=== PATIENT | female | born 1955 | race Caucasian/White ===

== ENCOUNTER 2017-12-22 19:52 | Observation (INO) | payer MEDICAID, SELFPAY ==
[2017-12-22 19:54] VITALS: BP 112/70; PULSE 86; RESP 16; TEMP 36.9; O2SAT 97; BMI 30.7
--- NOTE | 2017-12-22 21:41 | RAD_ITS ---
STUDY: X-RAY CHEST REASON FOR EXAM: Female, 62 years old. UPPER BACK PAIN, NAUSEA TECHNIQUE: Single AP portable view of the chest. COMPARISON: None. FINDINGS: The lungs are clear and expanded. There is no demonstrated pleural abnormality. Normal size heart. Normal mediastinum and alex. Normal visualized pulmonary arteries. Normal visualized aortic arch and descending thoracic aorta. The thoracic spine is not well evaluated in this projection. It appears there are mild degenerative changes. Normal visualized ribs, clavicles, and shoulders. There is no demonstrated abnormality of the visualized soft tissue structures of the upper abdomen. RAD/Chest 1 View (Portable) IMPRESSION: Normal x-ray examination of the chest. Electronically Signed: Grisel Grossman MD at 22:08 EST Tel , Service support ,
--- NOTE | 2017-12-22 21:41 | EKG12_ITS ---
Test Reason : BACK Blood Pressure : / mmHG Vent. Rate : 073 BPM Atrial Rate : 073 BPM P-R Int : 124 ms QRS Dur : 076 ms QT Int : 390 ms P-R-T Axes : 050 002 032 degrees QTc Int : 429 ms Normal sinus rhythm Normal ECG Confirmed by MARINE ABDULLAHI, FRANTZ ([id number]), online editor AVTAR PASCAL ([id number] on 12/24/2017 1:23:57 PM Referred By: ROOSEVELT VENTURA Confirmed By:FRANTZ HAWTHORNE MD
[2017-12-22] MEDS: 0.9% Normal Saline 1,000 ML 150 ML IV (22:03)
[2017-12-22] MEDS: Aspirin 81 MG TAB.CHEW 324 MG PO (22:04)
[2017-12-22 22:07] VITALS: BP 122/82; PULSE 84; RESP 18; O2SAT 100
[2017-12-22 22:25] LABS: Absolute Lymphocyte Count 1.34 X10^3/ul (0.83-4.51); Absolute Neutrophil Count 0.9 X10^3/uL (2.0-7.7); Basophil# 0.02 X10^3/uL; Basophil% 0.8 % (0-1); Eosinophil# 0.02 X10^3/uL; Eosinophils% 0.8 % (0-5); Hematocrit 41.9 % (37-47); Hemoglobin 14.1 g/dl (12.0-15.0); Lymphocyte # 1.34 X10^3/ul (4.0); Lymphocyte % 51.7 % (19-41); Mean Corp Hgb Conc 33.7 g/gl (32-36); Mean Corpuscular Hgb 29.3 pg (27.0-32.0); Mean Corpuscular Volume 87.1 fL (81-99); Mean Platelet Vol. 11.2 fl (6.2-12.0); Monocyte# 0.32 X10^3/uL; Monocyte% 12.4 % (0-10); Neutrophil # 0.88 X10^3/uL (2.7-7.7); Neutrophil % 33.9 % (47-70); Platelet Count 175 K/mm3 (150-450); RBC Distribution Width CV 13.8 % (11.6-14.6); RBC Distribution Width SD 43.6 fl (35.1-43.9); Red Blood Count 4.81 M/mm3 (4.2-5.4); White Blood Count 2.6 K/mm3 (4.4-11.0)
[2017-12-22 22:26] LABS: Differential Indicated SCAN CRITERIA MET; POSITIVE COUNT NO; POSITIVE DIFFERENTIAL YES; POSITIVE MORPHOLOGY NO
[2017-12-22 22:37] LABS: AST(SGOT) 139 U/L (15-37); Alanine Aminotransfer ALT/SGPT 224 U/L (13-56); Albumin, Serum 3.6 g/dL (3.2-5.0); Alkaline Phosphatase 156 U/L (45-117); Bilirubin, Direct 0.14 mg/dL (0.00-0.30); D-Dimer Quantitative (DVT/PE) 0.54 FEU/ug/m (0.27-0.49); Globulin 3.5 g/dL (2.2-4.2); Protein, Total 7.1 g/dL (6.4-8.2)
--- NOTE | 2017-12-22 22:37 | NURSING ---
elevated ddimer 0.54
[2017-12-22 22:43] LABS: Anion Gap 10 (5-15); BUN 12 mg/dL (7-18); BUN/Creat Ratio 14.4 RATIO (10-20); Calcium,Total 8.6 mg/dL (8.5-10.1); Chloride 102 mmol/L (98-107); Creatinine, Serum 0.83 mg/dL (0.55-1.02); EST Glomerular Filtration Rate 73 mL/min (>60); Est Glom Filt Rate - Afr Amer 88 mL/min (>60); Glucose 196 mg/dL (74-106); Lipase 65 U/L (73-393); Potassium 3.9 mmol/L (3.5-5.1); Sodium Level 139 mmol/L (136-145)
[2017-12-22 22:52] LABS: Differential Comment SCANNED; Platelet Estimate ADEQUATE (ADEQ); Reactive Lymphocyte 1+; Smudge Cells RARE
--- NOTE | 2017-12-22 22:57 | ED.DCSUM_ITS ---
- ER Visit Summary Date of Service: 12/22/17 Chief Complaint: [Back and chest pain] History of Present Illness: The patient is a 62 F [presents to the emergency department chief complaint of discomfort in her upper back ?2 days. Patient states she will have intermittent aching pressure and tightness that radiates down both arms. Patient has had nausea and diaphoresis with this. At times he feels like it takes her breath away. Patient also has had some discomfort in the epigastric region that she thought maybe was just indigestion. She denies any vomiting. He denies recent travel. She did have a surgery on her left rotator cuff last September.] Physical Examination: [HEENT-PERRLA, EOMI. Cranial nerves II through XII grossly intact. TMs clear. Mucous membranes moist. No adenopathy. Cardiovascular-regular rate and rhythm without murmur or ectopy Lungs-clear to auscultation, chest wall stable without crepitus or subcu emphysema Abdomen-normoactive bowel sounds, soft, nontender, no rebound or rigidity, no peritoneal signs. Back exam-patient has no tenderness over the thoracic or lumbar spine or paraspinal musculature. Patient has no tenderness over the trapezii and I cannot reproduce her pain. Extremities-intact ?4, normal range of motion, normal pulses, atraumatic] Test Results: [EKG obtained on arrival shows sinus rhythm with a ventricular rate of 73 bpm. CBC with differential showed a white blood cell count of 2.6, hemoglobin 14, hematocrit 42, platelets 175. Chemistries unremarkable. LFTs were elevated with an ALT of 224, AST 139, alk phos 156, lipase was 65, troponin was less than 0.02. D-dimer was 0.54. When her d-dimer is adjusted for age it is normal.] Emergency Department Course and Treatment: [Patient received aspirin while in the emergency department.] Treatment Plan: [Patient will be admitted for further workup and evaluation] Disposition: [Admit] Impression: [Chest pain-rule out acute coronary syndrome Back pain] This note was generated with [employer] dictation software. It may contain incorrect words, spelling, and punctuation that were not noted in review of the chart prior to signing ED Disposition - Plan for ED Patient: Chief Complaint: Back Referrals: Jeanne Webster DO [Primary Care Provider] -
[2017-12-22 23:00] VITALS: BP 124/79; PULSE 73; RESP 16; O2SAT 97
[2017-12-23 00:05] VITALS: BP 132/78; PULSE 72; PULSE 74; RESP 20; TEMP 37.2; O2SAT 98
[2017-12-23 00:07] VITALS: BMI 30.4
[2017-12-23 00:13] VITALS: BMI 30.4
[2017-12-23 00:20] LABS: Magnesium 2.1 mg/dL (1.6-2.6); Thyroid Stim Hormone (TSH) 3.05 uIU/mL (0.358-3.74)
[2017-12-23] MEDS: 0.9% Normal Saline 1,000 ML 75 ML IV (00:59)
[2017-12-23 01:16] LABS: Bedside Glucose 164 mg/dL (70-110)
[2017-12-23 02:43] LABS: Hemoglobin 13.5 g/dl (12.0-15.0); Mean Corp Hgb Conc 33.8 g/gl (32-36); Mean Corpuscular Hgb 29.5 pg (27.0-32.0); Mean Corpuscular Volume 87.3 fL (81-99); Mean Platelet Vol. 10.9 fl (6.2-12.0); Platelet Count 167 K/mm3 (150-450); RBC Distribution Width CV 13.7 % (11.6-14.6); RBC Distribution Width SD 43.2 fl (35.1-43.9); Red Blood Count 4.58 M/mm3 (4.2-5.4); Scan Indicated on CBC? Y/N NO; White Blood Count 2.9 K/mm3 (4.4-11.0)
[2017-12-23 03:00] LABS: ALB/GLOB Ratio 1.1 RATIO (0.9-2.4); AST(SGOT) 109 U/L (15-37); Alanine Aminotransfer ALT/SGPT 191 U/L (13-56); Albumin, Serum 3.4 g/dL (3.2-5.0); Alkaline Phosphatase 144 U/L (45-117); Anion Gap 10 (5-15); BUN 11 mg/dL (7-18); BUN/Creat Ratio 15.5 RATIO (10-20); Chloride 107 mmol/L (98-107); Creatinine, Serum 0.71 mg/dL (0.55-1.02); EST Glomerular Filtration Rate 88 mL/min (>60); Est Glom Filt Rate - Afr Amer 106 mL/min (>60); Estimated Creatinine Clearance 74.94 ml/min; Globulin 3.1 g/dL (2.2-4.2); Glucose 158 mg/dL (74-106); Potassium 3.6 mmol/L (3.5-5.1); Protein, Total 6.5 g/dL (6.4-8.2); Sodium Level 141 mmol/L (136-145)
[2017-12-23 03:04] VITALS: PULSE 72
--- NOTE | 2017-12-23 03:24 | PCM.HP.STD ---
Problem List (1) Chest pain Status: Acute Qualifiers: Chest pain type: unspecified Qualified Code(s): R07.9 - Chest pain, unspecified (2) DM type 2 (diabetes mellitus, type 2) Status: Chronic Qualifiers: Diabetes mellitus complication status: without complication Diabetes mellitus jail insulin use: without jail use Qualified Code(s): E11.9 - Type 2 diabetes mellitus without complications (3) GERD (gastroesophageal reflux disease) Status: Chronic Qualifiers: Esophagitis presence: esophagitis presence not specified Qualified Code(s): K21.9 - Gastro-esophageal reflux disease without esophagitis History of Present Illness Date of Admission: 12/23/17 Chief Complaint: Chest pain - 2 days The patient is a 62 year old F with PMHx of Type 2DM, GERD, chronic back pain who comes in with complains of chest pain. Patient says that she has had pain in her chest and upper back ongoing for 2 days. This is described as intermittent, aching, with tightness radiating down both arms associated with nausea and vomiting. This comes on intermittently. It is also associated with some discomfort in the epigastric region. Denies any fever or chills or palpitations. Her last stress test was about 5 years ago. She is currently on amoxicillin for recent sinus infection. Vitals in the ED showed temperature of 90 8.5F, heart rate of 86, blood pressure 1 2/70, respiratory rate of 16, oxygen saturation 97% on room air. A CBC showed WBC count of 2.6, Hb 14.1, platelets 175. D-dimer was elevated at 0.54 Past Medical History Past Medical History (Chronic Problems): Chronic Problems DM type 2 (diabetes mellitus, type 2) (Chronic) GERD (gastroesophageal reflux disease) (Chronic) Allergies aspirin [ASA] Adverse Reaction (Verified 12/22/17 19:54) Upset Stomach Home Medications: Ambulatory Orders Medication Instructions Recorded Lansoprazole [Prevacid] 15 mg PO DAILY 07/01/15 Glimepiride [Amaryl] 2 mg PO BID 12/22/17 Amoxicillin [Amoxicillin] 875 mg PO BID 12/23/17 Surgical History: appendectomy, cholecystectomy, hysterectomy, - - left shoulder surgery, foot surgery, breast biopsy Psychiatric History: No pertinent psych hx 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 Lives: Spouse/ Significant Other Smoking Status: Former smoker Tobacco Use: Non-smoker Alcohol: Occasional Drugs: None - *Family History Maternal History Items: No pertinent history Paternal History Items: Diabetes, Heart Disease Review of Systems Constitutional: Denies: Chills, Fever, Night Sweats, Weight Change Eyes: Denies: Blurred vision, Cataracts, Conjunctivae Inflammation, Pain, Redness, Vision Change HEENT: Denies: Difficulty Hearing, Head Aches, Hearing Changes, Nasal bleeding, Sinus Congestion, Sinus Drainage, Sore Throat Cardiovascular: Denies: Chest Pain, Claudication, Orthopnea, Palpitations, Paroxysmal Noc. Dyspnea Respiratory: Denies: Cough, Shortness of Breath, Shortness of breath at rest, Shortness of breath upon exertion, Sputum production Gastrointestinal: Denies: Abdominal Pain, Constipation, Hematemesis, Nausea, Vomiting Genitourinary: Denies: Dysuria, Frequency, Incontinence Musculoskeletal: Denies: Joint Pain, Joint stiffness, Joint swelling, Joint Tenderness Skin: Denies: Rash, Wounds Neurological: Denies: Numbness, Tingling, Focal weakness Psychiatric: Denies: Anxiety, Depression, Homicidal Ideations, Suicidal Ideations Hematologic/ Lymphatic: Denies: Easy Bruising, Easy Bleeding VTE Information - Inpt Only VTE Present on Admission: No VTE Pharm Prophylaxis ordered?: Yes Patient Problems: Active and Suspected Problems Chest pain (Acute) - Physical Exam General: Alert, Oriented x3, Cooperative, No apparent distress HEENT: Atraumatic, PERRLA, EOMI, Normocephalic Oral: Moist Mucosa Neck: Supple Lungs: Clear to auscultation, Normal air movement Cardiovascular: Regular rate, Regular Rhythm, Normal S1, Normal S2, No murmurs Abdomen: Bowel Sounds Present, Soft, Non Tender, Non-Distended, No Hepato-splenomegaly Extremities: No edema Skin: No rashes Musculoskeletal: No Tenderness to Palpation of Joints or Extremities Lymphatic: No Cervical, Supraclavicular, or Inguinal Adenopathy Neurological: Cranial nerves II-XII grossly intact Psych/Mental Status: Normal Affect, Appropriate Vital Signs Temp Pulse Resp BP Pulse Ox 98.9 F 72 20 H 132/78 H 98 12/23/17 00:05 12/23/17 00:05 12/23/17 00:05 12/23/17 00:05 12/23/17 00:05 Oxygen Delivery Method Room Air Weight: 85.5 kg Body Mass Index (BMI) 30.4 Laboratory Tests Past 24 Hrs 12/23/17 12/23/17 12/23/17 02:15 02:15 02:15 WBC 2.9 L RBC 4.58 Hgb 13.5 Hct 40.0 MCV 87.3 MCH 29.5 MCHC 33.8 RDW 13.7 RDW Differential 43.2 Plt Count 167 MPV 10.9 Sodium 141 Potassium 3.6 Chloride 107 Carbon Dioxide 24.0 Anion Gap 10 BUN 11 Creatinine 0.71 Estim Creat Clear Calc 74.94 Est GFR (MDRD) Af Amer 106 Est GFR (MDRD) Non-Af 88 BUN/Creatinine Ratio 15.5 Glucose 158 H Calcium 8.0 L Total Bilirubin 0.70 AST 109 H ALT 191 H Alkaline Phosphatase 144 H Troponin I < 0.02 < 0.02 Total Protein 6.5 Albumin 3.4 Globulin 3.1 Albumin/Globulin Ratio 1.1 POC Glucose 12/23/17 01:05 POC Glucose 164 H Assessment/Plan Active and Suspected Problems Chest pain (Acute) 62 year old F with PMHx of Type 2DM, GERD, who comes in with complains of chest pain and upper back ongoing for 2 days. 1. Chest pain, atypical, patient with risk factors, last stress test was 5 years ago and was normal Plan: Admit to PCU, cycle troponins, stress test in a.m., monitor on telemetry. 2. Elevated d-dimer, 0.54 below the age-adjusted threshold will 0.64 for patient, low threshold for PE, will not pursue work-up. 3. Recent sinus infection, on amoxicillin(day 3) 4. Type II DM, on Amaryl, will add Accu-Cheks with insulin sliding scale 5. GERD, on PPI 6. DVT prophylaxis with Lovenox subcu Code Visit OBSV E&M: [id number] Initial observation care L3
--- NOTE | 2017-12-23 03:37 | HP.PCM_ITS ---
Problem List (1) Chest pain Status: Acute Qualifiers: Chest pain type: unspecified Qualified Code(s): R07.9 - Chest pain, unspecified (2) DM type 2 (diabetes mellitus, type 2) Status: Chronic Qualifiers: Diabetes mellitus complication status: without complication Diabetes mellitus mcfp insulin use: without mcfp use Qualified Code(s): E11.9 - Type 2 diabetes mellitus without complications (3) GERD (gastroesophageal reflux disease) Status: Chronic Qualifiers: Esophagitis presence: esophagitis presence not specified Qualified Code(s) : K21.9 - Gastro-esophageal reflux disease without esophagitis History of Present Illness Date of Admission: 12/23/17 Chief Complaint: Chest pain - 2 days The patient is a 62 year old F with PMHx of Type 2DM, GERD, chronic back pain who comes in with complains of chest pain. Patient says that she has had pain in her chest and upper back ongoing for 2 days. This is described as intermittent, aching, with tightness radiating down both arms associated with nausea and vomiting. This comes on intermittently. It is also associated with some discomfort in the epigastric region. Denies any fever or chills or palpitations. Her last stress test was about 5 years ago. She is currently on amoxicillin for recent sinus infection. Vitals in the ED showed temperature of 90 8.5F, heart rate of 86, blood pressure 1 2/70, respiratory rate of 16, oxygen saturation 97% on room air. A CBC showed WBC count of 2.6, Hb 14.1, platelets 175. D-dimer was elevated at 0.54 Past Medical History Past Medical History (Chronic Problems): Chronic Problems DM type 2 (diabetes mellitus, type 2) (Chronic) GERD (gastroesophageal reflux disease) (Chronic) Allergies aspirin [ASA] Adverse Reaction (Verified 12/22/17 19:54) Upset Stomach Home Medications: Ambulatory Orders Medication Instructions Recorded Lansoprazole [Prevacid] 15 mg PO DAILY 07/01/15 Glimepiride [Amaryl] 2 mg PO BID 12/22/17 Amoxicillin [Amoxicillin] 875 mg PO BID 12/23/17 Surgical History: appendectomy, cholecystectomy, hysterectomy, - - left shoulder surgery, foot surgery, breast biopsy Psychiatric History: 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 Lives: Spouse/ Significant Other Smoking Status: Former smoker Tobacco Use: Non-smoker Alcohol: Occasional Drugs: None - *Family History Maternal History Items: No pertinent history Paternal History Items: Diabetes, Heart Disease Review of Systems Constitutional: Denies: Chills, Fever, Night Sweats, Weight Change Eyes: Denies: Blurred vision, Cataracts, Conjunctivae Inflammation, Pain, Redness, Vision Change HEENT: Denies: Difficulty Hearing, Head Aches, Hearing Changes, Nasal bleeding, Sinus Congestion, Sinus Drainage, Sore Throat Cardiovascular: Denies: Chest Pain, Claudication, Orthopnea, Palpitations, Paroxysmal Noc. Dyspnea Respiratory: Denies: Cough, Shortness of Breath, Shortness of breath at rest, Shortness of breath upon exertion, Sputum production Gastrointestinal: Denies: Abdominal Pain, Constipation, Hematemesis, Nausea, Vomiting Genitourinary: Denies: Dysuria, Frequency, Incontinence Musculoskeletal: Denies: Joint Pain, Joint stiffness, Joint swelling, Joint Tenderness Skin: Denies: Rash, Wounds Neurological: Denies: Numbness, Tingling, Focal weakness Psychiatric: Denies: Anxiety, Depression, Homicidal Ideations, Suicidal Ideations Hematologic/ Lymphatic: Denies: Easy Bruising, Easy Bleeding VTE Information - Inpt Only VTE Present on Admission: No VTE Pharm Prophylaxis ordered?: Yes Patient Problems: Active and Suspected Problems Chest pain (Acute) - Physical Exam General: Alert, Oriented x3, Cooperative, No apparent distress HEENT: Atraumatic, PERRLA, EOMI, Normocephalic Oral: Moist Mucosa Neck: Supple Lungs: Clear to auscultation, Normal air movement Cardiovascular: Regular rate, Regular Rhythm, Normal S1, Normal S2, No murmurs Abdomen: Bowel Sounds Present, Soft, Non Tender, Non-Distended, No Hepato- splenomegaly Extremities: No edema Skin: No rashes Musculoskeletal: No Tenderness to Palpation of Joints or Extremities Lymphatic: No Cervical, Supraclavicular, or Inguinal Adenopathy Neurological: Cranial nerves II-XII grossly intact Psych/Mental Status: Normal Affect, Appropriate Vital Signs Temp Pulse Resp BP Pulse Ox 98.9 F 72 20 H 132/78 H 98 12/23/17 00:05 12/23/17 00:05 12/23/17 00:05 12/23/17 00:05 12/23/17 00:05 Oxygen Delivery Method Room Air Weight: 85.5 kg Body Mass Index (BMI) 30.4 Laboratory Tests Past 24 Hrs 12/23/17 12/23/17 12/23/17 02:15 02:15 02:15 WBC 2.9 L RBC 4.58 Hgb 13.5 Hct 40.0 MCV 87.3 MCH 29.5 MCHC 33.8 RDW 13.7 RDW Differential 43.2 Plt Count 167 MPV 10.9 Sodium 141 Potassium 3.6 Chloride 107 Carbon Dioxide 24.0 Anion Gap 10 BUN 11 Creatinine 0.71 Estim Creat Clear Calc 74.94 Est GFR (MDRD) Af Amer 106 Est GFR (MDRD) Non-Af 88 BUN/Creatinine Ratio 15.5 Glucose 158 H Calcium 8.0 L Total Bilirubin 0.70 AST 109 H ALT 191 H Alkaline Phosphatase 144 H Troponin I < 0.02 < 0.02 Total Protein 6.5 Albumin 3.4 Globulin 3.1 Albumin/Globulin Ratio 1.1 POC Glucose 12/23/17 01:05 POC Glucose 164 H Assessment/Plan Active and Suspected Problems Chest pain (Acute) 62 year old F with PMHx of Type 2DM, GERD, who comes in with complains of chest pain and upper back ongoing for 2 days. 1. Chest pain, atypical, patient with risk factors, last stress test was 5 years ago and was normal Plan: Admit to PCU, cycle troponins, stress test in a.m., monitor on telemetry. 2. Elevated d-dimer, 0.54 below the age-adjusted threshold will 0.64 for patient, low threshold for PE, will not pursue work-up. 3. Recent sinus infection, on amoxicillin(day 3) 4. Type II DM, on Amaryl, will add Accu-Cheks with insulin sliding scale 5. GERD, on PPI 6. DVT prophylaxis with Lovenox subcu Code Visit OBSV E&M: [id number] Initial observation care L3
--- NOTE | 2017-12-23 05:00 | EKG12_ITS ---
Test Reason : AM EKG Blood Pressure : / mmHG Vent. Rate : 074 BPM Atrial Rate : 074 BPM P-R Int : 130 ms QRS Dur : 076 ms QT Int : 416 ms P-R-T Axes : 060 011 035 degrees QTc Int : 461 ms Normal sinus rhythm with sinus arrhythmia Low voltage QRS (limb leads) Confirmed by MARINE ABDULLAHI, FRANTZ ([id number]), industrial editor AVTAR PASCAL ([id number] on 12/24/2017 1:43:03 PM Referred By: JONN Confirmed By:FRANTZ HAWTHORNE MD
[2017-12-23 05:36] LABS: Prothrombin Time (Protime)PT. 12.8 SECONDS (11.7-14.9)
[2017-12-23 05:37] LABS: Partial Thromboplast Time 28.6 Seconds (24.1-36.2)
[2017-12-23 05:41] VITALS: BP 117/64; PULSE 68; RESP 16; TEMP 36.7; O2SAT 97
[2017-12-23 06:51] LABS: Bedside Glucose 155 mg/dL (70-110)
[2017-12-23] MEDS: Pantoprazole Sodium 20 MG Tablet PO (09:24)
[2017-12-23] MEDS: AMOXICILLIN 500 MG CAPSULE PO (09:24)
[2017-12-23] MEDS: Glimepiride 2 MG Tablet PO (09:24)
[2017-12-23] MEDS: 0.9% NaCl Peripheral Flush Adult/Peds IV (09:25)
[2017-12-23 09:47] VITALS: PULSE 86
--- NOTE | 2017-12-23 09:48 | STRESSREP ---
Stress Test Report Date: 12/23/2017 Procedure: Exercise tolerance test/imaging study Indications: Pain Consent: Per the patient Procedure: The patient exercised on a Parviz protocol for 5 minutes completing stage 1 and 2 minutes of stage II achieving a peak heart rate of 151 bpm (96 % predicted maximal heart rate) with a peak blood pressure 144/80 mmHg and a peak MET capacity of 7 METs. The baseline ECG demonstrated sinus rhythm. The peak exercise ECG demonstrated no obvious ECG changes. There was a rare PVC pretest and during exercise. The functional capacity was considered average. There was [no complaint of chest discomfort during exercise or recovery]. The examination was discontinued secondary to dyspnea and leg discomfort. Impression: 1. Technically adequate (percent predicted maximal heart rate greater than 85%) exercise tolerance test 2. Peak exercise ECG with no obvious ECG changes 3. Rare PVC pretest and during exercise. 4. Nuclear images pending Myocardial perfusion imaging study: Technique: The patient was injected with 11.6 mCi of technetium 99m Cardiolite and subsequently rest SPECT Cardiolite nuclear imaging was obtained in the horizontal long, vertical long, and short axis views. The patient exercised on a Parviz protocol for 5 minutes completing stage 1 and 2 minutes of stage II achieving a peak heart rate of 151 bpm (86 % predicted maximal heart rate) with a peak blood pressure 144/80 mmHg and a peak MET capacity of 7 METs. The patient was injected with 83.1 mCi of technetium 99m Cardiolite and subsequently stress SPECT Cardiolite nuclear imaging was obtained in the horizontal long, vertical long, and short axis views. A gated Cardiolite study at peak stress was obtained. Interpretation: Rest and stress SPECT Cardiolite nuclear imaging status post realignment, normalization, and attenuation correction, demonstrates [the appearance of relative uniform tracer uptake and myocardial perfusion appearing within normal limits]. [There is end systolic thickening and brightening]. The gated Cardiolite study demonstrates [myocardial thickening and inward wall motion]. The reported LVEF is 63 %. Impression: 1. Rest and stress SPECT Cardiolite nuclear imaging demonstrate [relative uniform tracer uptake and myocardial perfusion appearing within normal limits]. 2. The gated Cardiolite study reports an LVEF of 63 %. This note was generated with [employer] software. It may contain incorrect words, spelling, and punctuation that were not noted in checking the note before signing.
--- NOTE | 2017-12-23 09:51 | STRESSREP_ITS ---
Stress Test Report Date: 12/23/2017 Procedure: Exercise tolerance test/imaging study Indications: Pain Consent: Per the patient Procedure: The patient exercised on a Parviz protocol for 5 minutes completing stage 1 and 2 minutes of stage II achieving a peak heart rate of 151 bpm (96 % predicted maximal heart rate) with a peak blood pressure 144/80 mmHg and a peak MET capacity of 7 METs. The baseline ECG demonstrated sinus rhythm. The peak exercise ECG demonstrated no obvious ECG changes. There was a rare PVC pretest and during exercise. The functional capacity was considered average. There was [no complaint of chest discomfort during exercise or recovery]. The examination was discontinued secondary to dyspnea and leg discomfort. Impression: 1. Technically adequate (percent predicted maximal heart rate greater than 85% ) exercise tolerance test 2. Peak exercise ECG with no obvious ECG changes 3. Rare PVC pretest and during exercise. 4. Nuclear images pending Myocardial perfusion imaging study: Technique: The patient was injected with 11.6 mCi of technetium 99m Cardiolite and subsequently rest SPECT Cardiolite nuclear imaging was obtained in the horizontal long, vertical long, and short axis views. The patient exercised on a Parviz protocol for 5 minutes completing stage 1 and 2 minutes of stage II achieving a peak heart rate of 151 bpm (86 % predicted maximal heart rate) with a peak blood pressure 144/80 mmHg and a peak MET capacity of 7 METs. The patient was injected with 83.1 mCi of technetium 99m Cardiolite and subsequently stress SPECT Cardiolite nuclear imaging was obtained in the horizontal long, vertical long, and short axis views. A gated Cardiolite study at peak stress was obtained. Interpretation: Rest and stress SPECT Cardiolite nuclear imaging status post realignment, normalization, and attenuation correction, demonstrates [the appearance of relative uniform tracer uptake and myocardial perfusion appearing within normal limits]. [There is end systolic thickening and brightening]. The gated Cardiolite study demonstrates [myocardial thickening and inward wall motion]. The reported LVEF is 63 %. Impression: 1. Rest and stress SPECT Cardiolite nuclear imaging demonstrate [relative uniform tracer uptake and myocardial perfusion appearing within normal limits]. 2. The gated Cardiolite study reports an LVEF of 63 %. This note was generated with [employer] software. It may contain incorrect words, spelling, and punctuation that were not noted in checking the note before signing.
--- NOTE | 2017-12-23 10:53 | DCINST_ITS ---
- Discharge Diagnoses Current Active Problems: Current Active and Chronic Problems Chest pain (Acute) DM type 2 (diabetes mellitus, type 2) (Chronic) GERD (gastroesophageal reflux disease) (Chronic) You will use the following diet at home:: Calorie/Carbohydrate Controlled ( specify 1200, 1400, etc) - 1800 omar Your food should be the consistency of: Regular Discharge Activity: Return to Normal Activity Weight Bearing Status: Full weight bearing Call your doctor if you observe: Fever of 101 or Higher, Shortness of breath, Dizziness, Fainting spells, Chest pain, Increased palpitations (irregular heartbeat), Uncontrolled pain Allergies/Adverse Reactions: Allergies aspirin [ASA] Adverse Reaction (Verified 12/22/17 19:54) Upset Stomach Medications to take at Discharge Lansoprazole [Prevacid] 15 mg PO DAILY 07/01/15 Glimepiride [Amaryl] 2 mg PO BID 12/22/17 Amoxicillin 875 mg PO BID 12/23/17 Primary Care Physician: Jeanne Webster DO [Primary Care Provider] - Please follow up with your Primary Care Physician in: 4-6 weeks.
[2017-12-23 11:00] VITALS: BP 112/72; PULSE 67; RESP 16; TEMP 37.3; O2SAT 99
--- NOTE | 2017-12-23 14:15 | PCM.DC.SUM ---
Discharge Date and Diagnosis Date of Admission: 12/23/17 Date of Discharge: 12/23/17 - Primary Discharge Diagnosis Chest pain, negative cardiac workup including stress test. - Secondary Discharge Diagnosis Chronic Problems DM type 2 (diabetes mellitus, type 2) (Chronic) GERD (gastroesophageal reflux disease) (Chronic) Hospital Course and Treatment Imaging Results: 12/23/17 05:55 Nuclear Stress Test - Treadmil [NM] Routine Clinical Impression(s) from Imaging Studies Chest X-Ray 12/22/17 21:41 IMPRESSION: Normal x-ray examination of the chest. Electronically Signed: Grisel Grossman MD at 22:08 EST Tel , Service support , Procedures: EKG, Stress test Summary of Care Provided: Patient seen and examined on the day of discharge and appeared to be stable to be discharged home. She has no more chest pain. She mentioned that she had a history of GERD and she has been on Protonix. Her vital signs are stable. - Physical Exam General: Alert, Oriented x3, Cooperative, No apparent distress. HEENT: Atraumatic, PERRLA, EOMI. Neck: Supple, No JVD, Negative Carotid Bruits, Trachea Midline, Thyroid Normal. Lungs: Clear to auscultation, Normal air movement, No rhonchi, No wheeze, No rales. Cardiovascular: Regular rate, Regular Rhythm, Normal S1, Normal S2, PMI Normal. Abdomen: Bowel Sounds Present, Soft, Non Tender, Non-Distended, No Hepato-splenomegaly. Extremities: No clubbing, No cyanosis, No edema Skin: No rashes, No breakdown Neurological: Neuro grossly intact Vital Signs are stable. Hospital course: The patient is a 62 year old F Mr. because chest pain for evaluation. Her cardiac workup was unremarkable. EKG revealed normal sinus rhythm without evidence of acute ischemia or cardiac arrhythmias. Chest x-ray showed no acute findings. Troponin was negative ?4. Her routine blood work was unremarkable. D-dimer was elevated and for her age, adjusted d-dimer is normal. There was no risk factors for PE. She was not hypoxic or tachycardic. There was no indication for further workup regarding the elevated d-dimer. She underwent nuclear stress test that reported as negative without evidence of stress induced myocardial ischemia. Acute coronary syndrome ruled out. Patient did have history of GERD and she has been on PPI. Patient discharged home in a stable medical condition, discharged on the same medication that she has been taking without any changes, recommended follow-up with PCP in 4-6 weeks. Discharge Activity: Return to Normal Activity Weight Bearing Status: Full weight bearing Call your doctor if you observe: Fever of 101 or Higher, Shortness of breath, Dizziness, Fainting spells, Chest pain, Increased palpitations (irregular heartbeat), Uncontrolled pain Home Medications: Medications to take at Discharge Lansoprazole [Prevacid] 15 mg PO DAILY 07/01/15 Glimepiride [Amaryl] 2 mg PO BID 12/22/17 Amoxicillin 875 mg PO BID 12/23/17 Primary Care Physician: Jeanne Webster DO [Primary Care Provider] - Please follow up with your Primary Care Physician in: 4-6 weeks. Disposition: Home Minutes spent on discharge:: 25 Patient Condition:: Stable Meaningful Use Info Meaningful Use Diagnoses (Choose all that apply): None applicable Code Visit OBSV E&M: 75154 Observ/hosp same date L1
--- NOTE | 2017-12-23 14:21 | DS.PCM_ITS ---
Discharge Date and Diagnosis Date of Admission: 12/23/17 Date of Discharge: 12/23/17 - Primary Discharge Diagnosis Chest pain, negative cardiac workup including stress test. - Secondary Discharge Diagnosis Chronic Problems DM type 2 (diabetes mellitus, type 2) (Chronic) GERD (gastroesophageal reflux disease) (Chronic) Hospital Course and Treatment Imaging Results: 12/23/17 05:55 Nuclear Stress Test - Treadmil [NM] Routine Clinical Impression(s) from Imaging Studies Chest X-Ray 12/22/17 21:41 IMPRESSION: Normal x-ray examination of the chest. Electronically Signed: Grisel Grossman MD at 22:08 EST Tel , Service support , Procedures: EKG, Stress test Summary of Care Provided: Patient seen and examined on the day of discharge and appeared to be stable to be discharged home. She has no more chest pain. She mentioned that she had a history of GERD and she has been on Protonix. Her vital signs are stable. - Physical Exam General: Alert, Oriented x3, Cooperative, No apparent distress. HEENT: Atraumatic, PERRLA, EOMI. Neck: Supple, No JVD, Negative Carotid Bruits, Trachea Midline, Thyroid Normal. Lungs: Clear to auscultation, Normal air movement, No rhonchi, No wheeze, No rales. Cardiovascular: Regular rate, Regular Rhythm, Normal S1, Normal S2, PMI Normal. Abdomen: Bowel Sounds Present, Soft, Non Tender, Non-Distended, No Hepato- splenomegaly. Extremities: No clubbing, No cyanosis, No edema Skin: No rashes, No breakdown Neurological: Neuro grossly intact Vital Signs are stable. Hospital course: The patient is a 62 year old F Mr. because chest pain for evaluation. Her cardiac workup was unremarkable. EKG revealed normal sinus rhythm without evidence of acute ischemia or cardiac arrhythmias. Chest x-ray showed no acute findings. Troponin was negative ?4. Her routine blood work was unremarkable. D-dimer was elevated and for her age, adjusted d-dimer is normal. There was no risk factors for PE. She was not hypoxic or tachycardic. There was no indication for further workup regarding the elevated d-dimer. She underwent nuclear stress test that reported as negative without evidence of stress induced myocardial ischemia. Acute coronary syndrome ruled out. Patient did have history of GERD and she has been on PPI. Patient discharged home in a stable medical condition, discharged on the same medication that she has been taking without any changes, recommended follow-up with PCP in 4-6 weeks. Discharge Activity: Return to Normal Activity Weight Bearing Status: Full weight bearing Call your doctor if you observe: Fever of 101 or Higher, Shortness of breath, Dizziness, Fainting spells, Chest pain, Increased palpitations (irregular heartbeat), Uncontrolled pain Home Medications: Medications to take at Discharge Lansoprazole [Prevacid] 15 mg PO DAILY 07/01/15 Glimepiride [Amaryl] 2 mg PO BID 12/22/17 Amoxicillin 875 mg PO BID 12/23/17 Primary Care Physician: Jeanne Webster DO [Primary Care Provider] - Please follow up with your Primary Care Physician in: 4-6 weeks. Disposition: Home Minutes spent on discharge:: 25 Patient Condition:: Stable Meaningful Use Info Meaningful Use Diagnoses (Choose all that apply): None applicable Code Visit OBSV E&M: 12118 Observ/hosp same date L1
[2017-12-24 09:09] LABS: HEPATITIS B SURFACE AG Negative (Negative); Hepatitis A IgM Antibody Negative (Negative); Hepatitis B Core AB IgM Negative (Negative)
[2017-12-24 14:59] LABS: Hep C Antibodies <0.1 s/co ratio (0.0-0.9)
== END 2017-12-23 12:50 | disposition home or self-care (01) ==
LOC: ED 23:01 → PCU 23:17
PROVIDERS: Admitting Provider Internal Medicine; Emergency Provider Emergency Medicine; Family Provider Family Medicine; PCP Family Medicine; Visit Provider Hospitalist
DX: R07.89 Other chest pain (principal); E11.9 Type 2 diabetes mellitus without complications; R11.2 Nausea with vomiting, unspecified; K21.9 Gastro-esophageal reflux disease without esophagitis; G89.29 Other chronic pain; Z79.899 Other long term (current) drug therapy; Z87.891 Personal history of nicotine dependence
CPT/HCPCS: 36415; 71045; 78452; 80048; 80053; 80074; 80076; 82962; 83690; 83735; 84443; 84484; 85025; 85027; 85379; 85610; 85730; 93005; 93017; 96360; 96361; 99218; 99283; A9500; J7030; A4216; G0378; J2785

== ENCOUNTER → 2018-02-07 15:39 | Outpatient (CLI) | payer MEDICAID, SELFPAY ==
[2018-02-07 18:33] LABS: ALB/GLOB Ratio 1.3 RATIO (0.9-2.4); AST(SGOT) 36 U/L (15-37); Alanine Aminotransfer ALT/SGPT 52 U/L (13-56); Albumin, Serum 4.2 g/dL (3.2-5.0); Alkaline Phosphatase 107 U/L (45-117); Anion Gap 9 (5-15); BUN 12 mg/dL (7-18); BUN/Creat Ratio 13.8 RATIO (10-20); Chloride 103 mmol/L (98-107); Creatinine, Serum 0.87 mg/dL (0.55-1.02); EST Glomerular Filtration Rate 70 mL/min (>60); Est Glom Filt Rate - Afr Amer 84 mL/min (>60); Globulin 3.3 g/dL (2.2-4.2); Glucose 158 mg/dL (74-106); Potassium 3.8 mmol/L (3.5-5.1); Protein, Total 7.5 g/dL (6.4-8.2); Sodium Level 139 mmol/L (136-145)
== END ==
PROVIDERS: Family Provider Family Medicine; PCP Family Medicine; Visit Provider Family Medicine
DX: R94.5 Abnormal results of liver function studies (principal)
CPT/HCPCS: 36415; 80053

== ENCOUNTER 2022-02-12 12:22 | Outpatient (CLI) | payer MEDICARE, SELFPAY ==
--- NOTE | 2022-02-12 12:37 | US_ITS ---
STUDY: RENAL ULTRASOUND - COMPLETE REASON FOR EXAM: Female, 66 years old. RENAL MASS TECHNIQUE: Ultrasound evaluation of the kidneys was performed with real-time and static borges-scale imaging. COMPARISON: None. FINDINGS: RIGHT KIDNEY: Normal location of the right kidney, which is normal in size. The right kidney measures 11.5 cm x 5 cm x 5.8 cm. There is a normal cortex of the right kidney. The renal cortex measures 2.2 cm. There is no right renal mass or cyst. There are no right renal calculi. Fullness of the right renal pelvis. DISTAL RIGHT URETER: There is non-visualization of the distal right ureter. There is no demonstrated right ureterovesical junction calculus. There is a visualized right ureteral jet. LEFT KIDNEY: Normal location of the left kidney, which is normal in size. The left kidney measures 12.1 cm x 6.3 cm x 6.4 cm. There is a normal cortex of the left kidney. The renal cortex measures 2.8 cm. There is a 3.3 cm x 3.6 cm x 3.3 cm echogenic nodule in the mid lateral aspect of the left kidney. This most likely represents an angiomyolipoma. There are no left renal calculi. Fullness of the left renal pelvis. DISTAL LEFT URETER: There is non-visualization of the distal left ureter. There is no demonstrated left ureterovesical junction calculus. There is a visualized left ureteral jet. BLADDER: The distended urinary bladder has a volume of 512 ml. There is a normal wall thickness of the distended urinary bladder. There is no demonstrated mass within the urinary bladder. There are no demonstrated bladder calculi. US/Kidney and Bladder IMPRESSION: 3.3 cm x 3.6 cm x 3.3 cm echogenic nodule in the mid lateral aspect of the left kidney. This most likely represents an angiomyolipoma. Mild fullness of both renal pelves. Electronically Signed: Anjum Duncan MD at 14:25 EDT ,
== END 2022-02-12 23:59 | disposition home or self-care (01) ==
LOC: US 12:26
PROVIDERS: PCP Family Medicine; Referring Provider Urology; Visit Provider Urology
DX: N28.81 Hypertrophy of kidney (principal)
CPT/HCPCS: 76770

== ENCOUNTER → 2023-12-17 | Outpatient (CLI) | payer MEDICARE, SELFPAY ==
[2023-12-17 15:50] LABS: ALB/GLOB Ratio 1.2 RATIO (0.9-2.4); AST(SGOT) 24 U/L (15-37); Alanine Aminotransfer ALT/SGPT 23 U/L (13-56); Albumin, Serum 3.8 g/dL (3.2-5.0); Alkaline Phosphatase 105 U/L (45-117); Anion Gap 5 (5-15); BUN 20 mg/dL (7-18); Calcium,Total 9.1 mg/dL (8.5-10.1); Chloride 109 mmol/L (98-107); EST Glomerular Filtration Rate 58 mL/min (>60); Est Glom Filt Rate - Afr Amer 70 mL/min (>60); Globulin 3.2 g/dL (2.2-4.2); Glucose 173 mg/dL (74-106); Potassium 4.3 mmol/L (3.5-5.1); Sodium Level 141 mmol/L (136-145)
== END | disposition home or self-care (01) ==
LOC: LAB 13:55
PROVIDERS: PCP Physician Assistant; Referring Provider Nurse Practitioner Family; Visit Provider Nurse Practitioner Family
DX: E11.9 Type 2 diabetes mellitus without complications (principal)
CPT/HCPCS: 36415; 80053

== ENCOUNTER → 2024-03-06 | Outpatient (CLI) | payer MEDICARE, SELFPAY ==
[2024-03-06 13:10] LABS: Vitamin D,25 Hydroxy 26.4 ng/mL
[2024-03-06 13:11] LABS: Microalbumin,Random Urine < 5.0 mg/L (NO RANGE EST.)
[2024-03-06 13:21] LABS: ALB/GLOB Ratio 1.3 RATIO (0.9-2.4); AST(SGOT) 22 U/L (15-37); Alanine Aminotransfer ALT/SGPT 28 U/L (13-56); Albumin, Serum 4.2 g/dL (3.2-5.0); Alkaline Phosphatase 99 U/L (45-117); Anion Gap 7 (5-15); BUN 14 mg/dL (7-18); BUN/Creat Ratio 16.9 RATIO (10-20); Calcium,Total 9.3 mg/dL (8.5-10.1); Chloride 106 mmol/L (98-107); Cholesterol 178 mg/dL (200); Creatinine, Serum 0.83 mg/dL (0.55-1.02); EST Glomerular Filtration Rate 72 mL/min (>60); Est Glom Filt Rate - Afr Amer 87 mL/min (>60); Globulin 3.3 g/dL (2.2-4.2); Glucose 127 mg/dL (74-106); High Density Lipoprotein 68 mg/dL; Potassium 4.2 mmol/L (3.5-5.1); Protein, Total 7.5 g/dL (6.4-8.2); Sodium Level 139 mmol/L (136-145); Thyroid Stim Hormone (TSH) 3.18 uIU/mL (0.358-3.74); Triglycerides 138 mg/dL; Very Low Density Lipoprotein 28 mg/dL (5-40)
== END | disposition home or self-care (01) ==
LOC: LAB 11:45
PROVIDERS: PCP Physician Assistant; Referring Provider Nurse Practitioner Family; Visit Provider Nurse Practitioner Family
DX: I10 Essential (primary) hypertension (principal); E11.9 Type 2 diabetes mellitus without complications; E55.9 Vitamin D deficiency, unspecified; R07.9 Chest pain, unspecified
CPT/HCPCS: 36415; 80053; 80061; 82043; 82306; 82570; 84443

== ENCOUNTER → 2025-05-14 | Outpatient (CLI) | payer MEDICARE, SELFPAY ==
[2025-05-14 11:48] LABS: Hematocrit 47.9 % (37-47); Hemoglobin 15.7 g/dL (12.0-15.0); Immature Granulocytes Count 0.010 X10^3/uL (0.0-0.0); Mean Corp Hgb Conc 32.8 g/dL (32-36); Mean Corpuscular Volume 88.5 fL (81-99); Mean Platelet Vol. 10.9 fl (6.2-12.0); NRBC Flagged by Analyzer 0 % (0-5); Platelet Count 237 K/mm3 (150-450); RBC Distribution Width CV 13.2 % (11.6-14.6); RBC Distribution Width SD 43.0 fl (35.1-43.9); Red Blood Count 5.41 M/mm3 (4.2-5.4); White Blood Count 4.4 K/mm3 (4.4-11.0)
[2025-05-14 11:51] LABS: Creatinine, Urine (random) 33.30 mg/dL (28.00-217.00); Microalbumin,Random Urine < 12.0 mg/L (NO RANGE EST.)
[2025-05-14 12:04] LABS: AST(SGOT) 26 U/L (<=31); Alanine Aminotransfer ALT/SGPT 22 U/L (<=34); Albumin, Serum 4.5 g/dL (3.4-4.8); Alkaline Phosphatase 108 U/L (35-104); Anion Gap 13 (5-15); BUN 20 mg/dL (4-19); BUN/Creat Ratio 21.5 RATIO (10-20); Calcium,Total 9.9 mg/dL (7.6-11.0); Carbon Dioxide 24.8 mmol/L (21.0-32.0); Chloride 102 mmol/L (98-108); Cholesterol 192 mg/dL (<=200); Globulin 2.6 g/dL (2.2-4.2); Glucose 128 mg/dL (70-99); Low Density Lipoprotein Calc. 95 mg/dL; Potassium 4.6 mmol/L (3.3-5.1); Triglycerides 206 mg/dL; Very Low Density Lipoprotein 41 mg/dL (5-40); Vitamin D,25 Hydroxy 29.3 ng/mL (30-100); cholesterol:hdl ratio screen 3.43
== END | disposition home or self-care (01) ==
LOC: LAB 10:51
PROVIDERS: PCP Physician Assistant; Referring Provider Nurse Practitioner Family; Visit Provider Nurse Practitioner Family
DX: E11.9 Type 2 diabetes mellitus without complications (principal); E55.9 Vitamin D deficiency, unspecified
CPT/HCPCS: 36415; 80053; 80061; 82043; 82306; 82570; 84443; 85025